=== PATIENT | male | born 1950 | race Caucasian/White ===

== ENCOUNTER 2016-12-21 07:44 | Day surgery (SDC) | payer BC, MEDICARE ==
[2016-12-21] MEDS ORDERED: LIDOCAINE 2% MDV (20MG/ML) 20ML VIAL IV ONE (11:00)
[2016-12-21] MEDS ORDERED: MIDAZOLAM HCL 2MG/2ML VIAL IV ONE (11:00)
[2016-12-21] MEDS ORDERED: PROPOFOL 10 MG/ML VIAL IV ONE (11:00)
--- NOTE | 2016-12-27 10:10 | Operative Note ---
DATE OF SURGERY: 12/21/2016 POSTOPERATIVE DIAGNOSES: 1. Left-sided colon diverticulosis. 2. A 3 mm rectal polyp that was removed by cold biopsy forceps. OPERATION: COLONOSCOPY. Surgeon: Oskar Sultana D.O. Indication for Procedure: This is a 66-year-old male with average risk for colorectal cancer who presented for screening colonoscopy. Sedation: Sedation was per Anesthesia. Pulse oximetry was monitored throughout the duration of the procedure to maintain O2 saturation of 90% or greater. Supplemental oxygen was administered via nasal cannula. Cardiac and vital signs were monitored throughout the duration of the procedure, and they were stable. Description of the procedure of colonoscopy and risks and benefits of the procedure including the risk of bleeding and perforation, among others, were explained to the patient. He voiced understanding and consented to have the procedure done. Physical exam was performed, and the patient was found stable for sedation. PROCEDURE: The patient was placed in the left lateral position and sedation was initiated. Digital rectal exam was performed and showed small internal hemorrhoids with no palpable rectal masses. The Olympus PCF-180AL colonoscope was then inserted into the rectum under direct visualization and advanced to the cecum without difficulty. The ileocecal valve and appendiceal orifice were identified and photographed. The colonic mucosa was carefully examined upon insertion of the colonoscope. There were scattered diverticula noted in the sigmoid and descending colon. There were no other lesions noted. The colonoscope was then withdrawn while carefully examining the colonic mucosal surfaces. No lesions were noted. In the rectum however a 3 mm sessile polyp was noted and was removed by cold biopsy forceps. On retroflexion, grade 1 internal hemorrhoids were noted. The colonoscope was then withdrawn and the procedures were terminated. The patient tolerated the procedures well without immediate complications. He remained with stable vital signs and was transferred to the Recovery Room. PLAN AND RECOMMENDATIONS: 1. He is to be on a high-fiber diet. 2. He is to have a repeat colonoscopy for surveillance in 5 or 10 years depending on histology of the polyp. As always, thank you for allowing me to participate in the care of your patient. Oskar Sultana MD CC: Leisa Brenner
== END 2016-12-21 10:13 | disposition home or self-care (01) ==
LOC: HOP 07:44
PROVIDERS: ATTEND Internal Medicine Gastroenterology
DX: Z12.11 Encounter for screening for malignant neoplasm of colon (principal); K62.1 Rectal polyp; I10 Essential (primary) hypertension; E78.00 Pure hypercholesterolemia, unspecified